=== PATIENT | female | born 1960 | race Hispanic/Latino ===

== ENCOUNTER 2017-05-31 07:42 | Day surgery (SDC) | payer MEDICAID ==
[2017-03-20 11:55] VITALS: BMI 37.8
[2017-05-31] MEDS ORDERED: Lactated Ringer's 500 ML IV ONE (08:26)
[2017-05-31] MEDS ORDERED: Propofol 10 mg/ml Inj (20 ML) ONE (10:14)
[2017-05-31] MEDS ORDERED: Midazolam 2 MG/2 ML VIAL ONE (10:14)
[2017-05-31 11:17] VITALS: BP 112/58; PULSE 76; RESP 18; TEMP 94.5; O2SAT 99
== END 2017-05-31 11:42 | disposition home or self-care (01) ==
LOC: H.ENDO 07:42
PROVIDERS: ATTEND Internal Medicine Gastroenterology
DX: Z86.010 Personal history of colon polyps (principal); K64.1 Second degree hemorrhoids; K57.30 Diverticulosis of large intestine without perforation or abscess without bleeding; I10 Essential (primary) hypertension
CPT/HCPCS: 45378; J2001; J2250; J2704; J7120